=== PATIENT | female | born 1960 | race Caucasian/White ===

== ENCOUNTER → 2022-05-08 | Outpatient (CLI) | payer OTHER ==
[~2022-05-08] MED LIST: METO25ER
== END | disposition home or self-care (01) ==
LOC: LAB SHORT 09:56 → LAB 09:56
DX: Z08 Encounter for follow-up examination after completed treatment for malignant neoplasm (principal); L57.0 Actinic keratosis; L08.9 Local infection of the skin and subcutaneous tissue, unspecified; Z86.007 Personal history of in-situ neoplasm of skin
CPT/HCPCS: 87070; 87205

== ENCOUNTER 2022-05-18 12:23 | Day surgery (SDC) | payer OTHER ==
[~2022-05-18] VITALS: Ht 167.6 cm; Wt 79.9 kg
[2022-05-18] MEDS ORDERED: METO25ER (12:42)
== END 2022-05-18 14:56 | disposition home or self-care (01) ==
LOC: ORSCSDS 12:23
PROVIDERS: Student in an Organized Health Care Education/Training Program
PROC: 0DBL8ZX Excision of Transverse Colon, Via Natural or Artificial Opening Endoscopic, Diagnostic (ICD-10-PCS; principal; 2022-05-18 14:00)
PROC: 0DBK8ZX Excision of Ascending Colon, Via Natural or Artificial Opening Endoscopic, Diagnostic (ICD-10-PCS; principal; 2022-05-18 14:00)
PROC: 0DBP8ZX Excision of Rectum, Via Natural or Artificial Opening Endoscopic, Diagnostic (ICD-10-PCS; principal; 2022-05-18 14:00)
PROC: 0DBH8ZX Excision of Cecum, Via Natural or Artificial Opening Endoscopic, Diagnostic (ICD-10-PCS; principal; 2022-05-18 14:00)
PROC: 0DBM8ZX Excision of Descending Colon, Via Natural or Artificial Opening Endoscopic, Diagnostic (ICD-10-PCS; principal; 2022-05-18 14:00)
DX: Z12.11 Encounter for screening for malignant neoplasm of colon (principal); D12.3 Benign neoplasm of transverse colon; D12.0 Benign neoplasm of cecum; D12.2 Benign neoplasm of ascending colon; D12.4 Benign neoplasm of descending colon; D12.8 Benign neoplasm of rectum; K57.30 Diverticulosis of large intestine without perforation or abscess without bleeding; K64.8 Other hemorrhoids; Z85.41 Personal history of malignant neoplasm of cervix uteri; Z85.828 Personal history of other malignant neoplasm of skin
CPT/HCPCS: 88305; J0330; J0461; J2250; J2405; J2704; J7120; Q9968